=== PATIENT | female | born 1960 | race Caucasian/White ===

== ENCOUNTER 2024-03-21 07:45 | Day surgery (SDC) | payer OTHER, SELFPAY ==
[2024-03-21] MEDS: Lactated Ringers 1,000 ML 80 ML IV (08:05)
--- NOTE | 2024-03-21 08:05 | W.SURGCON ---
Date of service: 03/21/24 Time of Service: 08:05 Assessment and Plan Assessment and plan (1) Colon cancer screening: Status: Acute Assessment and plan: 63-year-old woman due for colon cancer screening. No symptoms and no increased risk factors. Overall plan: Colonoscopy History of Present Illness Narrative: Patient is here for surveillance colonoscopy. She last had one 10+ years ago and it was normal. She denies a family history of colon cancer. She does not have any symptoms or complaints. PFSH All Active Problems (Updated 03/21/24 @ 08:06 by Teddy Manjarrez MD) Colon cancer screening (Acute) Surgical History History of surgery cyst exc. right breast History of colonoscopy 09/23/12 - [facility] - Normal, repeat 10 years Social History Smoking/Tobacco Use Status: Never Smoking risk assessment performed?: Yes Alcohol Intake: current Alcohol Intake frequency: a few times a month Alcohol type: wine Drug use: Never Substance use type: does not use Housing: house Do you feel safe at home: Yes Do you feel safe in your relationship?: Yes Exam Narrative Exam Narrative: General: Nontoxic, comfortable and interactive Neuro: Alert and oriented x 3 Psych: Good mood and affect, good insight and understanding into her condition Chest: Nonlabored breathing Heart: Regular
--- NOTE | 2024-03-21 08:06 | W.COLOREPORT ---
Date of service: 03/21/24 Time of Service: 08:06 Colonoscopy Report Procedure Description: PROCEDURES PERFORMED: 1. Colonoscopy PREOPERATIVE DIAGNOSIS: Surveillance colonoscopy POSTOPERATIVE DIAGNOSIS: Normal terminal ileum, normal colon, normal rectum SURGEON: Damon Manjarrez MD INDICATION FOR PROCEDURE: the patient is a 63-year-old woman with no symptoms and no significant family history whose last colonoscopy was reportedly normal. FINDINGS: Normal terminal ileum, no polyps, no inflammation anywhere, no diverticular disease, no obvious hemorrhoid disease. SURVEILLANCE interval/FOLLOW-UP: 10 years SPECIMENS: None EBL: Minimal COMPLICATIONS: None QUALITY of prep: Excellent Procedure in detail: The patient gave written consent and was in agreement with the indications, the potential risks as well as the benefits of the procedure. They were taken to the endoscopy suite and laid in the left lateral decubitus position. A timeout was performed and anesthesia was administered which was tolerated well. I started the procedure. Digital rectal and visual examination was performed and grossly within normal limits. A well-lubricated flexible colonoscope was then introduced and passed without any notable difficulty all the way to the cecum identified by the ileocecal valve and the appendiceal orifice. Her terminal ileum was intubated and looked normal. The scope was then slowly withdrawn with the above-noted findings. The patient tolerated the procedure well and was taken to the PACU in hemodynamically stable condition.
--- NOTE | 2024-03-21 08:07 | W.PM.DSUDISC ---
Date of service: 03/21/24 Time of Service: 08:07 Discharge Plan Disposition Patient Disposition: Home Condition: Good Discharge Details Attending Provider: Teddy Manjarrez Primary Care Provider: Parris Harrison Home Meds and New Rx's Prescriptions: No Action Fish Oil 1,600-500-800 mg/5 mL liquid 5 ml PO DAILY Lactobacillus acidophilus 10 billion cell capsule 10,000 mmu cells PO DAILY polyethylene glycol 3350 17 gram/dose powder 17 g PO ONCE Qty: 238 0RF Rx Instructions: Take per colonoscopy instructions provided by ordering providers office bisacodyl [Dulcolax (bisacodyl)] 5 mg tablet,delayed release (DR/EC) 5 mg PO ONCE Qty: 4 0RF Rx Instructions: Take per colonoscopy instructions provided by ordering providers office Discharge Instructions Additional Instructions: FINDINGS: Your colon and your rectum are very healthy and normal. There were no concerning findings. Repeat another colonoscopy in 10 years unless we develop something more modern at that time Stand Alone Forms: Anesthesia Discharge Inst., [place] ([facility]) Activity:: Activity as Tolerated Diet:: As Tolerated DS: Diagnosis Discharge Diagnosis (1) Colon cancer screening: Status: Acute
[2024-03-21 08:09] VITALS: BP 122/78; PULSE 64; RESP 16; TEMP 36.5; O2SAT 100
--- NOTE | 2024-03-21 08:19 | W.ANESPRE ---
General Info Date of Service Date Performed: 03/21/24 Height: 5 ft 8 in Weight: 62 kg Body Mass Index (BMI): 20.7 Surgical Procedure: Operation Date: 03/21/24 08:50 Proposed Procedure Side Surgeon p Colonoscopy Teddy Manjarrez MD Meds Allergies and Home Medications Allergies Allergy/AdvReac Type Severity Reaction Status Date / Time Penicillins Allergy Unknown Skin Rash Verified 03/21/24 08:03 Home Medication Medication Instructions Recorded Lactobacillus acidophilus 10 10,000 mmu cells PO DAILY 12/14/23 billion cell capsule omega [id number]-vnj-fish oil 1,600 5 ml PO DAILY 12/14/23 mg-500 mg-800 mg/5 mL oral liquid (Fish Oil) bisacodyl 5 mg tablet,delayed 5 mg PO ONCE #4 tabs 02/17/24 release (Dulcolax (bisacodyl)) polyethylene glycol 3350 17 17 g PO ONCE #238 grams 02/17/24 gram/dose oral powder Current Visit Medications: Current Medications Generic Name Dose Route Start Last Admin Trade Name [place] PRN Reason Stop Dose Admin Ringer's Solution 1,000 mls @ 80 mls/hr 03/21/24 08:09 03/21/24 08:05 IV 04/20/24 08:08 80 mls/hr INFUSION ALLEGRA Administration PFSH Active Problems Active Problems: Problem Status Onset Code Colon cancer screening Z12.11 Medical History Medical History Comments:: pt. denies medical history Surgical History Surgical History History of surgery cyst exc. right breast History of colonoscopy 09/23/12 - [facility] - Normal, repeat 10 years Tobacco Smoking/Tobacco Use Status: Never Alcohol Alcohol Intake: current Alcohol intake frequency: a few times a week Alcohol type: wine Substance Use Substance use: Never Substance use type: does not use Details: alcohol: t-2, one drink Vital Signs and Lab Results Vital Signs Most Recent Vital Signs in EMR: Most Recent Vital Signs Temp Pulse Resp BP Pulse Ox 36.5 C 64 16 122/78 100 03/21/24 08:09 03/21/24 08:09 03/21/24 08:09 03/21/24 08:09 03/21/24 08:09 Lab Results Blood Type / Crossmatch: No Data to Display Complete Blood Count: No Data to Display Complete Metabolic Panel: No Data to Display Liver Function Panel: No Data to Display Coagulation Panel: No Data to Display Cardiac Panel: No Data to Display Arterial Blood Gas: No Data to Display Venous Blood Gas: No Data to Display Pancreas Panel: No Data to Display Thyroid Panel: No Data to Display Infectious Disease: No Data to Display Blood Cultures: No Data to Display Toxicology Panel: No Data to Display Anesthesia Assessment and Plan Anesthesia History Personal History: No History of Anesthesia Complications Family History: No Family History of Anesthesia Complications Exercise Tolerance Exercise Tolerance: Metabolic Equivalents>4 Pertinent Negatives Pertinent Negatives: No Symptoms of GERD Cardiac & Pulmonary Exam Cardiac Exam: Normal S1/S2 Heart Sounds Pulmonary Exam: Clear Bilateral Breath Sounds Implantable Cardiac Device Does patient have a Pacemaker or an ICD?: No Airway Exam Known Difficult Airway: No Mallampati Class: 2 Mouth Opening: Normal (> 3cm) Thyromental Distance: Greater than 3 cm Neck Range of Motion: Full ROM Neck Circumference: Normal Teeth Condition: Normal Dentition ASA Classification ASA Score: ASA 2 Emergency Case?: No NPO Status NPO Status: NPO Clears >2 hours, Solids >8 hours Anesthesia Plan Resuscitation Status: Full Code Anesthesia Technique: General Anesthesia Airway Planned: Natural Airway Monitors Used: Standard Monitors
[2024-03-21 08:58] VITALS: BMI 20.7
[2024-03-21 09:17] VITALS: BP 90/54; PULSE 63; RESP 16; TEMP 36.2; O2SAT 98
[2024-03-21 09:47] VITALS: BP 94/56; PULSE 60; RESP 16; TEMP 36; O2SAT 100
--- NOTE | 2024-03-21 10:00 | W.ANESPOSTOP ---
Postoperative Evaluation Date, Time and Location Date Performed: 03/21/24 Time Performed: 09:20 Patient Location: Day Surgery Unit Vital Signs Most Recent Imported Vital Signs: Most Recent Vital Signs Temp Pulse Resp BP Pulse Ox 36.2 C L 63 16 90/54 L 98 03/21/24 09:17 03/21/24 09:17 03/21/24 09:17 03/21/24 09:17 03/21/24 09:17 Pain Score Most Recent Pain Score: Most Recent Pain Score Pain Level 0 03/21/24 09:17 Assessment Mental Status: Arousable with meaningful communication Airway and Respiratory Function: Patent airway with normal (patient baseline) respiratory exam Cardiovascular Function: Hemodynamically Stable Hydration Status: Adequately Hydrated Nausea & Vomiting: No Nausea or Vomiting Pain: Pt. Denies Any Pain Peripheral Nerve Block: Patient did not receive a nerve block
== END 2024-03-21 10:06 | disposition home or self-care (01) ==
LOC: SUR 07:46
PROVIDERS: PCP Registered Nurse; Visit Provider Student in an Organized Health Care Education/Training Program
PROC: 0DJD8ZZ Inspection of Lower Intestinal Tract, Via Natural or Artificial Opening Endoscopic (ICD-10-PCS; CPT 45378; principal; 2024-03-21 08:45)
DX: Z12.11 Encounter for screening for malignant neoplasm of colon (principal)
CPT/HCPCS: 45378; 00123; J2704